=== PATIENT | female | born 1960 | race Caucasian/White ===

== ENCOUNTER 2016-11-17 07:00 | Day surgery (SDC) | payer BC ==
--- NOTE | ~2016-11-17 | EGD ---
EGD REPORT [facility] [address] [place]. [address] NAME: JAIME COON : [birth year] STATUS : REG [facility]#: [id number] AGE: 56 ADM/REG DATE : 11/17/16 MR#: [id number] REPORT SERV DATE: 11/17/16 DICTATED BY: RUBEN DOE DATE: 11/17/16 REPORT STATUS : Draft [facility]ANS[facility]IBED [facility]: [facility] DATE: 11/17/16 Endoscopy Center Patient Name: Jaime Coon Date of : 1960 Attending MD: RUBEN DOE MD Procedure Date No Time: 11/17/2016 Procedure: Colonoscopy Indications: High risk colon cancer surveillance: Ulcerative pancolitis of 8+ years duration; last exam 2014. Patient Profile: Informed consent was obtained from the patient by me prior to the procedure. Risks, benefits, and alternatives were discussed including the risk of bleeding, perforation, infection, reaction to medicine, missed lesion, and cardiopulmonary complications. Referring MD: LIV TRUJILLO Medicines: Monitored Anesthesia Care Complications: No immediate complications. Procedure: Pre-Anesthesia Assessment: - ASA Grade Assessment: III - A patient with severe systemic disease. After I obtained informed consent, the scope was passed under direct vision. Throughout the procedure, the patient's blood pressure, pulse, and oxygen saturations were monitored continuously. The CF [id number] was introduced through the anus and advanced to the cecum, identified by appendiceal orifice and ileocecal valve. The colonoscope was slowly withdrawn with careful examination all mucosal surfaces including specific attention around flexures and tip deflection behind folds; retroflexion performed in rectum. The colonoscopy was performed without difficulty. The patient tolerated the procedure well. The quality of the bowel preparation was adequate. The ileocecal valve, appendiceal orifice and rectum were photographed. Findings: The colon (entire examined portion) appeared normal. Four biopsies were taken every 10 cm with a cold forceps from the cecum, ascending colon, transverse colon, descending colon, sigmoid colon and rectum for ulcerative colitis surveillance. These biopsy specimens from the cecum, ascending colon, transverse colon, descending colon, sigmoid colon and rectum were sent to Pathology. A flat polyp was found in the descending colon without surrounding gross colitis. The polyp was 10 mm in size. The polyp was removed with a cold snare. Resection was complete, but the polyp tissue was not retrieved. EGD REPORT [address] [address] NAME: JAIME COON : [birth year] STATUS : REG [facility]#: [id number] AGE: 56 ADM/REG DATE : 11/17/16 MR#: [id number] REPORT SERV DATE: 11/17/16 DICTATED BY: RUBEN DOE DATE: 11/17/16 REPORT STATUS : Draft TRANSCRIBED BY: [employer] DATE: 11/17/16 A flat polyp was found in the sigmoid colon. The polyp was 5 mm in size. The polyp was removed with a cold biopsy forceps. Resection and retrieval were complete. External hemorrhoids were found, and they were moderate. Impression: - The entire examined colon is normal. Biopsied. - One 10 mm polyp in the descending colon. Complete resection. Polyp tissue not retrieved. - One 5 mm polyp in the sigmoid colon. Resected and retrieved. - External hemorrhoids. Recommendation: - Patient has a contact number available for emergencies. The signs and symptoms of potential delayed complications were discussed with the patient. Return to normal activities tomorrow. Written discharge instructions were provided to the patient. - Regular diet. - Continue present medications. - Await pathology results. - Repeat colonoscopy for surveillance based on pathology results. - F/u aspirate sent for cdif PCR, parasite, cx (intermittent diarrhea). - Increase Balsalazide to 3 tabs tid. Procedure Code(s): --- Professional --- 05621, Colonoscopy, flexible, proximal to splenic flexure; with removal of tumor(s), polyp(s), or other lesion(s) by snare technique 25076, 59, Colonoscopy, flexible, proximal to splenic flexure; with biopsy, single or multiple Diagnosis Code(s): --- Professional --- K64.4, Residual hemorrhoidal skin tags D12.5, Benign neoplasm of sigmoid colon D12.4, Benign neoplasm of descending colon K51.00, Ulcerative (chronic) pancolitis without complications CPT copyright 2013 [employer]. All rights reserved. The codes documented in this report are preliminary and upon remote inpatient coder review may be revised to meet current compliance requirements. EGD REPORT [facility] [address] [address] NAME: JAIME COON : [birth year] STATUS : REG [facility] PAT#: [id number] AGE: 56 ADM/REG DATE : 11/17/16 MR#: [id number] REPORT SERV DATE: 11/17/16 DICTATED BY: RUBEN DOE. DATE: 11/17/16 REPORT STATUS : Draft TRANSCRIBED BY: [employer] DATE: 11/17/16 RUBEN DOE MD 11/17/2016 8:27 AM This report has been signed electronically. Number of Addenda: 0 Note Initiated On: 11/17/2016 7:28 AM Scope Withdrawal Time 0 hours 16 minutes 36 seconds [address] [place] [id number]
--- NOTE | ~2016-11-17 | EGD ---
EGD REPORT [facility] [address] [place] [address] NAME: JAIME COON : [birth year] STATUS : REG [facility]#: [id number] AGE: 56 ADM/REG DATE : 11/17/16 MR#: [id number] REPORT SERV DATE: 11/17/16 DICTATED BY: RUBEN DOE DATE: 11/17/16 REPORT STATUS : Draft TRANSCRIBED BY: [facility] DATE: 11/17/16 Endoscopy Center Patient Name: Jaime Coon Date of : 1960 Attending MD: RUBEN DOE MD Procedure Date No Time: 11/17/2016 Procedure: Upper GI endoscopy Indications: Dysphagia, Heartburn; Dexilant 30mg daily. Patient Profile: Informed consent was obtained from the patient by me prior to the procedure. Risks, benefits, and alternatives were discussed including the risk of bleeding, perforation, infection, reaction to medicine, missed lesion, and cardiopulmonary complications. Referring MD: LIV TRUJILLO Medicines: Monitored Anesthesia Care Complications: No immediate complications. Procedure: Pre-Anesthesia Assessment: - ASA Grade Assessment: III - A patient with severe systemic disease. After obtaining informed consent, the endoscope was passed under direct vision. Throughout the procedure, the patient's blood pressure, pulse, and oxygen saturations were monitored continuously. The GIF [id number] was introduced through the mouth, and advanced to the second part of duodenum. The endoscope was withdrawn with careful examination all mucosal surfaces including retroflexion stomach. The upper GI endoscopy was accomplished without difficulty. The patient tolerated the procedure well. Findings: The first part of the duodenum and 2nd part of the duodenum were normal. Biopsies were taken with a cold forceps for histology. Patchy mildly erythematous mucosa was found in the gastric body. Biopsies were taken with a cold forceps for histology. The cardia, gastric antrum and gastric fundus (on retroflexion) were normal. The examined esophagus was normal. Biopsies were taken with a cold forceps for histology from mid and upper. 48F Savary dilation performed over guidewire held in antrum; no resistance to dilation; endoscopic visualization afterwards no mucosal breaks. The esophagus and gastroesophageal junction were examined with white light. There was no visual evidence of Oconnell's esophagus. EGD REPORT [place] [place] [id number] [place]. [address] NAME: JAIME COON : [birth year] STATUS : [place] [facility] [place]#: [id number] AGE: 56 ADM/REG DATE : 11/17/16 MR#: [id number] REPORT SERV DATE: 11/17/16 DICTATED BY: RUBEN DOE DATE: 11/17/16 REPORT STATUS : Draft TRANSCRIBED BY: [employer] DATE: 11/17/16 Impression: - Normal first part of the duodenum and 2nd part of the duodenum. Biopsied. - Erythematous mucosa in the gastric body. Biopsied. - Normal cardia, antrum and gastric fundus. - Normal esophagus. Biopsied. Dilated. - There is no endoscopic evidence of Oconnell's esophagus. Recommendation: - Patient has a contact number available for emergencies. The signs and symptoms of potential delayed complications were discussed with the patient. Return to normal activities tomorrow. Written discharge instructions were provided to the patient. - Regular diet. - Continue present medications. - Await pathology results. - Taper Dexilant to use as needed. Procedure Code(s): --- Professional --- 98271, Esophagogastroduodenoscopy, flexible, transoral; with insertion of guide wire followed by passage of dilator(s) through esophagus over guide wire 02597, Esophagogastroduodenoscopy, flexible, transoral; with biopsy, single or multiple Diagnosis Code(s): --- Professional --- K31.9, Disease of stomach and duodenum, unspecified R13.10, Dysphagia, unspecified R12, Heartburn CPT copyright 2013 [employer]. All rights reserved. The codes documented in this report are preliminary and upon records supervisor review may be revised to meet current compliance requirements. RUBEN DOE MD 11/17/2016 7:57 AM This report has been signed electronically. Number of Addenda: 0 Note Initiated On: 11/17/2016 7:32 AM Scope Withdrawal Time 0 hours 0 minutes 0 seconds [id number] [id number]
[~2016-11-17 07:00] MED LIST: ALPHA LIPOIC300 MG PO; ASAB PO; CARDCD240 PO; CLARIT10 PO; COLAZAL 750 MG750 MG OR; COREG25 PO; CYMBALTA60 PO; DETROLLA4 PO; DEXILANT PO; DITRO5 PO; ELIQUIS 5 MG TAB5 MG PO; FISH OIL1200 MG PO; GLUCOPHAGE1000 MG PO; HYDROCHLOROT25 MG PO; HYZAAR 100/25 T1 TAB PO; HYZAAR 50/12.51 TAB PO; KAPIDEX30 MG PO; LIPITOR20 PO; LORT7 PO; MELA3 PO; NORCO1 TA2 PO; SLEEP AIDE PO; TOPAMAX100 PO; TOPAMAX25 PO; TOPXL100 PO; UROCIT-K 5540 MG PO; VIACTIV PO; [UNRECOGNIZED DRUG - REMARK] INH
== END 2016-11-17 23:59 | disposition home or self-care (01) ==
LOC: DMU 07:00
PROVIDERS: Internal Medicine Gastroenterology
PROC: 0DBM8ZX Excision of Descending Colon, Via Natural or Artificial Opening Endoscopic, Diagnostic (ICD-10-PCS; 2016-11-17)
PROC: 0DBL8ZX Excision of Transverse Colon, Via Natural or Artificial Opening Endoscopic, Diagnostic (ICD-10-PCS; 2016-11-17)
PROC: 0DB98ZX Excision of Duodenum, Via Natural or Artificial Opening Endoscopic, Diagnostic (ICD-10-PCS; 2016-11-17)
PROC: 0DB18ZX Excision of Upper Esophagus, Via Natural or Artificial Opening Endoscopic, Diagnostic (ICD-10-PCS; 2016-11-17)
PROC: 0DB28ZX Excision of Middle Esophagus, Via Natural or Artificial Opening Endoscopic, Diagnostic (ICD-10-PCS; 2016-11-17)
PROC: 0DB68ZX Excision of Stomach, Via Natural or Artificial Opening Endoscopic, Diagnostic (ICD-10-PCS; 2016-11-17)
PROC: 0D758ZZ Dilation of Esophagus, Via Natural or Artificial Opening Endoscopic (ICD-10-PCS; 2016-11-17)
PROC: 0DBK8ZX Excision of Ascending Colon, Via Natural or Artificial Opening Endoscopic, Diagnostic (ICD-10-PCS; principal; 2016-11-17 07:30)
PROC: 0DBH8ZX Excision of Cecum, Via Natural or Artificial Opening Endoscopic, Diagnostic (ICD-10-PCS; 2016-11-17 07:30)
PROC: 0DBP8ZX Excision of Rectum, Via Natural or Artificial Opening Endoscopic, Diagnostic (ICD-10-PCS; 2016-11-17 07:30)
PROC: 0DBN8ZX Excision of Sigmoid Colon, Via Natural or Artificial Opening Endoscopic, Diagnostic (ICD-10-PCS; 2016-11-17 07:30)
DX: Z12.11 Encounter for screening for malignant neoplasm of colon (principal); K63.5 Polyp of colon; I10 Essential (primary) hypertension; I48.91 Unspecified atrial fibrillation; G51.0 Bell's palsy; G47.33 Obstructive sleep apnea (adult) (pediatric); E11.9 Type 2 diabetes mellitus without complications; K21.9 Gastro-esophageal reflux disease without esophagitis; Z79.84 Long term (current) use of oral hypoglycemic drugs; Z79.01 Long term (current) use of anticoagulants; Z79.899 Other long term (current) drug therapy
CPT/HCPCS: 82962; 87045; 87046; 87046-59; 87328; 87329; 87493; 87493-59; 87899; 87899-59; 88305